=== PATIENT | female | born 1940 | race Two or more races ===

== ENCOUNTER 2016-11-15 06:07 | Inpatient (IN) | payer MEDICARE, OTHER ==
--- NOTE | 2016-11-07 21:30 | HP ---
HISTORY AND PHYSICAL: DATE OF OFFICE VISIT: 11/07/16 DATE OF ADMISSION/SURGERY: 11/15/16 SURGEON: Denis Villeda MD PROCEDURE: Left total knee arthroplasty. CHIEF COMPLAINT: Left knee pain. HISTORY OF PRESENT ILLNESS: Ms. Rae is a 76-year-old female with complaints of left knee pain. She has failed conservative management and elected to proceed with a left total knee arthroplasty with Dr. Villeda. PAST MEDICAL HISTORY: Hypothyroidism, vitamin B12 deficiency, high cholesterol , hypertension, cluster headaches, and aortic incompetence. Patient had a prolonged hospitalization after her right total knee replacement that requires attention from all regarding drug sensitivity; orthopedics, anesthesia, and the medical team. PAST SURGICAL HISTORY: Cataract removal, right total knee arthroplasty, cardiac ablation. CURRENT MEDICATIONS: 1. Aspirin. 2. Levothyroxine. 3. Vitamin B12. 4. Vitamin D3. 5. Sumatriptan. ALLERGIES: DULCOLAX and METAL. FAMILY HISTORY: Hypertension and prostate cancer. SOCIAL HISTORY: She is a 76-year-old female. She lives with her . She does not smoke, use drugs, or alcohol. REVIEW OF SYSTEMS: A complete 14-point review of systems was reviewed with the patient. It is positive for migraine headaches and severe nausea following anesthesia from her right total knee. She denies any history of bleeding disorders, blood clot, pulmonary embolism, hepatitis C, or HIV. PHYSICAL EXAMINATION GENERAL: She is well developed, well nourished, in no acute distress. VITAL SIGNS: She stands 5 feet 6 inches tall, weighs 175 pounds, her blood pressure is 119/78, her heart rate is 80. HEENT: Normocephalic, atraumatic. NECK: Supple. No palpable lymph nodes. Trachea is midline. PULMONARY: The lungs are clear to auscultation bilaterally. No wheezes, rhonchi, or rales. CARDIAC: Regular rate and rhythm. Strong S1, S2. No murmurs, gallops, or rubs. No peripheral edema. ABDOMEN: Soft, nontender, and nondistended. MUSCULOSKELETAL: Left lower extremity; the skin is intact. She has a moderate effusion and tenderness over the medial and lateral joint line. Full range of motion of the left knee. Lower extremity muscle group strengths are intact to 5 /5 and she has intact sensation to pinprick and light touch. 2+ dorsalis pedis pulses. NEUROLOGIC: She is alert and oriented x3. Cranial nerves II through XII are intact. ASSESSMENT AND PLAN: Ms. Rae is a 76-year-old female with complaints of left knee pain secondary to advanced osteoarthritis. She has failed conservative management and elected to proceed with a left total knee arthroplasty with Dr. Villeda. Dr. Villeda discussed the risks and benefits of the surgery at today's visit and all of her questions were answered. Her primary care physician is Dr. Joseph. She will see Dr. Villeda back in 10 to 14 days after the surgery. MARIO SANDHU [id number]/[facility] #: [id number] MTDWard
[~2016-11-15 06:07] MED LIST: Buffered Lidocaine 1% SYR 3ML* 3 ML/SYR SYRINGE INTRADERM ONE; Dexamethasone IV* 4 MG/ML 1 ML (4 MG) IV SLOW PU ONE; Dexamethasone IV* 4 MG/ML 1 ML (4 MG) ONE; Famotidine IV* 10 MG/ML 2 ML (20 mg) IV ONE; Famotidine IV* 10 MG/ML 2 ML (20 mg) ONE; ceFAZolin 2 GM PREMIX (*) 2 GM/50 ML BAG IVPB ONE
[2016-11-15] MEDS ORDERED: Bupivacaine 0.5% SDV PF* 30 ML VIAL ONE ×3 (06:58→07:48)
[2016-11-15] MEDS ORDERED: fentaNYL* 50 MCG/ML 2 ML VIAL (100 MCG VIAL) ONE ×2 (06:59→08:18)
[2016-11-15] MEDS ORDERED: Dexmedetomidine* 200 MCG/2 ML 2 ML VIAL ONE (06:59)
[2016-11-15] MEDS ORDERED: Propofol* 10 MG/ML 20 ML BTL IV PUSH ONE (06:59)
[2016-11-15] MEDS ORDERED: HYDROmorphone INJ* 1 MG/ML CARPUJECT SYRINGE ONE ×4 (06:59→10:19)
[2016-11-15] MEDS ORDERED: Midazolam* 1 MG/ML 5 ML VIAL (5 MG) ONE (07:00)
[2016-11-15] MEDS ORDERED: Bupivacaine 0.5% W/EPI SDV* 30 ML VIAL ONE (07:19)
[2016-11-15] MEDS ORDERED: Morphine PF AMP (0.5MG/ML)* 5 MG/10 ML AMP ONE (08:04)
[2016-11-15] MEDS ORDERED: PROCHLORPERAZINE INJ 5 MG/ML 2 ML VIAL ONE ×2 (08:16→12:36)
[2016-11-15] MEDS ORDERED: Ondansetron INJ* 2 MG/ML VIAL IV PRN ×2 (10:55→10:56)
[2016-11-15] MEDS ORDERED: DiMENhydriNATE IV* 50 MG/ML VIAL IV PUSH PRN ×2 (10:55→10:56)
[2016-11-15] MEDS ORDERED: PROCHLORPERAZINE INJ 5 MG/ML 2 ML VIAL IV PRN ×2 (10:55→10:56)
[2016-11-15] MEDS ORDERED: fentaNYL* 50 MCG/ML 2 ML VIAL (100 MCG VIAL) IV PRN (10:55)
[2016-11-15] MEDS ORDERED: HYDROmorphone INJ* 1 MG/ML CARPUJECT SYRINGE IV PRN (10:55)
[2016-11-15] MEDS ORDERED: Naloxone* 0.4 MG/ML 1 ML VIAL IV PRN (10:56)
[2016-11-15] MEDS ORDERED: diPHENhydraMINE IV* 50 MG/ML 1 ml VIAL (BENADRYL) IV PRN (10:56)
[2016-11-15] MEDS ORDERED: Nalbuphine* 20 MG/ML 1 ML VIAL IV PRN (10:56)
[2016-11-15] MEDS ORDERED: Acetaminophen TAB* 325 MG ONE (11:57)
[2016-11-15] MEDS: Acetaminophen TAB* 325 MG PO PRN (11:58)
--- NOTE | 2016-11-15 12:00 | RAD ---
HISTORY: Postop left knee arthroplasty COMPARISONS: June 20, 2016 VIEWS: 2, frontal and crosstable lateral views of the left knee FINDINGS: BONE DENSITY: Normal. BONES: The patient is status post left knee arthroplasty. There is no hardware failure or osteolysis. JOINTS: The patient is status post left hip capacity ALIGNMENT: There is no dislocation. SOFT TISSUES: Unremarkable. OTHER FINDINGS: There is post surgical change to the soft tissue IMPRESSION: STATUS POST LEFT KNEE ARTHROPLASTY
[2016-11-15] MEDS ORDERED: Ondansetron INJ* 2 MG/ML VIAL ONE (12:36)
[2016-11-15] MEDS: ceFAZolin 1 GM in Dextrose (*) 1 GM/50 ML BAG IVPB SCH ×2 (16:35→22:03)
[2016-11-15] MEDS: oxyCODONE/Acetamin 5/325 MG* TAB PO PRN ×2 (19:17→23:47)
[2016-11-15] MEDS: Docusate CAP* 100 MG PO SCH (22:03)
[2016-11-16] MEDS ORDERED: diPHENhydraMINE IV* 50 MG/ML 1 ml VIAL (BENADRYL) IV PRN
[2016-11-16] MEDS ORDERED: Ondansetron INJ* 2 MG/ML VIAL IV PRN
[2016-11-16] MEDS ORDERED: oxyCODONE TAB* 5 MG TAB PO PRN ×2
[2016-11-16] MEDS ORDERED: Morphine INJ* 2 MG/ML 1 ML CARPUJECT IV PRN
[2016-11-16] MEDS ORDERED: oxyCODONE/Acetamin 5/325 MG* TAB PO PRN ×2
--- NOTE | 2016-11-16 02:14 | OP ---
DATE OF OPERATION: 11/15/16 - ROOM #343 DATE OF : 40 SURGICAL CARE: Left knee. SURGEON: Denis Villeda MD ASSISTANTS: 1. MARIO Davis. 2. Martine Plunkett, distribution field technician. ANESTHESIOLOGIST: Dr. Claudio Littlejohn. ANESTHESIA: Spinal and left saphenous nerve block mid thigh. PRE-OP DIAGNOSIS: Severe arthritis of the left knee with some varus deformity. POST-OP DIAGNOSIS: Severe arthritis of the left knee with some varus deformity. OPERATIVE PROCEDURE: Left total knee replacement. COMPONENTS UTILIZED: The Chris Persona knee was utilized, all components cemented, femur is a size 7, the tibia is a size C, the articular surface is a size 10, and the patella size 32. COMPLICATIONS: There were no complications. DRAINS: Two blood collection drains, left knee, at the end of the case. BLOOD LOSS: 200 mL and replacement crystalloid fluids. OPERATIVE INDICATION: Severe left knee arthritis, no longer responsive to nonoperative care. The patient had a right total knee replacement in 2010. DESCRIPTION OF PROCEDURE: The patient was brought to the operating room and placed on the operating room table in a supine position. Following the administration of the anesthetic, first the femoral saphenous block was done, left thigh, and then the spinal was administered, and then she was returned to the supine position. A Pena catheter was inserted. The left proximal thigh was wrapped with a tourniquet. The left leg was given a preliminary chlorhexidine prep in the region of the knee and then a formal prep from the tourniquet to the tips of the toes and then a careful draping and sealing off for left knee replacement. We did our universal protocol timeout confirming Mirta Butch and a plan for left total knee replacement. We all agreed and we proceeded. The surgical care was done largely without the tourniquet. The tourniquet was utilized just in the cleanup and cementing phase of the case. The surgical care was done with the knee acutely flexed to discourage bleeding. Skin incision went from 1 fingerbreadth proximal to the superior pole of the patella to the medial aspect of the tibial tubercle. Skin and subcutaneous tissues were divided down to the deep fascia. The prepatellar bursa was traversed. The knee was entered medial parapatellar and the knee had clear goldish synovial fluid. The quadriceps tendon was divided at the junction of the rectus femoris and the vastus medialis, staying as close to the vastus medialis as possible. Medial parapatellar and then the tibia, the tissues were divided down to the tibia just medial to the tibial tubercle going up to the joint line and careful hemostasis checked and achieved throughout the case utilizing electrocautery. The patient had complete eburnation of the bone, medial femoral condyle, medial tibial plateau with some scooping out of large osteophytes in medial femoral condyle, medial tibial plateau, in the intercondylar notch, and the patella as well. The anteromedial soft tissues on the tibia were elevated subperiosteally going medially to the deep MCL and into the postero-medial corner of the knee. We removed the synovium around the patella, the infrapatellar fat pad. The intercondylar notch osteophytes were removed. The ACL and PCL were carefully uplifted from their femoral origins and the tibia was then made, so it could be subluxated forward from under the femur. The PCL was carefully excised with careful hemostasis while working posteriorly in the knee. The remains of the anterior horn of the medial meniscus were excised. The distal anterior femur was exposed subperiosteally for referencing and measuring. The proximal tibial cut was made first. Our goal here was to correct varus by taking a little more tibia laterally than medially and ending up with a tibial cut that would have a slight posterior slope and would be perpendicular to the long axis of the tibia. The femoral intramedullary drill was then utilized and the femoral canal was suctioned to discourage embolization. The distal femoral cutting guide was applied with 0 and 6 degrees of valgus were left. These cuts were completed. The femur was then measured for a size 7 and the external rotation holes were made and the 7 cutting block was applied with the external rotation having been attended to. The cuts were then completed for the distal femur anteriorly, chamfering, and posteriorly. We then finished removal of the posterior horn of the lateral meniscus, the posterior horn of the medial meniscus, carefully preserving the MCL and osteophyte posteriorly. At this stage, we had nice ligamentous balance in extension and 90 degrees of flexion with a 10 mm block. The femur was completed with the intercondylar cut out for a size 7. Anchoring holes were made. The tibia was completed for a size C. The knee was articulated and extended with a C tibia, 10 articular surface and a 7 femur, with full knee extension, stable ligaments in extension, and stable ligaments in 90 degrees of flexion. The patella was cut flat and a 32 was chosen. Three drill holes were made and these were undercut. A lateral release was not necessary and the knee had nice alignment and flexion at this stage. The leg was then exsanguinated. The tourniquet was elevated to 275. The knee was cleaned in extension with 2.5 liters of pulsed saline irrigation. The bony surfaces were cleaned in flexion once again with pulsed saline and then all surfaces were dried. The cement was mixed and the components were cemented into position - the patella, followed by the tibia, followed by the femur. Each was impacted. Excess cement was removed. The knee was articulated and extended during the final hardening, and we removed all excess cement from the tibia around the patella, the femur, and the intercondylar notch. Once the cement was hard, the tourniquet was deflated. We checked posteriorly for retained cement fragments and for bleeding points, all were cauterized. We irrigated several times during the closure with saline as well. Then the knee was flexed and extended several times during closure. The flexion was well past 125 degrees and full extension with nice alignment. The quadriceps mechanism closed with interrupted #1 Polysorbs in a [id number] fashion. The same with the medial retinaculum. Distally, we closed with 0-Polysorb interrupted and running. The deep fascia closed with interrupted 0 Polysorb and then 3-0 Polysorb in the superficial subcu and then sydni on the skin. When we let the tourniquet down, the pericapsular soft tissues posteromedially and medially were infiltrated with Marcaine 0.5% with epinephrine, and at the very end of the case, we put another 10 cc into the joint. The dressing was done after washing and drying, covering the sydni with Betadine-soaked release. The drains were dressed with the same and then sterile gauze, sterile Webril, then a cryotherapy cuff, ABD pads, and two loosely applied 6-inch Uday bandages. The dorsalis pedis pulse was 2+ at the end of the case. The alignment was very satisfactory and the patient was returned to the recovery room in stable and satisfactory condition, having tolerated the procedure very well. CC: Dr. Joseph * [id number]/[facility] #: [id number] DALE
[2016-11-16] MEDS: Levothyroxine TAB* 25 MCG TAB PO SCH (05:43)
[2016-11-16] MEDS: ceFAZolin 1 GM in Dextrose (*) 1 GM/50 ML BAG IVPB SCH (05:44)
--- NOTE | 2016-11-16 07:49 | PN ---
Subjective - Subjective Reason for Note: Consultation Note History: She recovered from surgery and anesthesia well. She was able to eat some dinner last night without problem. Sensation and strength have returned to her legs after the spinal anesthetic. She was able to stand and pivot by the bedside. In the early hours of this morning developed light headedness and some intense nausea. She has a mild headache - but not a migraine. She is concerned about her blood pressure. Her pain control is excellent. Active Problems: Active Problems Drug-induced nausea and vomiting (Acute) T50.901A, R11.2 Headache (Acute) R51 History of total knee arthroplasty (Acute) Z96.659 Primary hypothyroidism (Acute) E03.9 Aortic insufficiency (Chronic) Essential hypertension (Chronic) I10 History of arthroplasty of right knee (Chronic) Z96.651 Osteoarthritis of knee (Chronic) M17.9 Vitamin B12 deficiency (dietary) anemia (Chronic) D51.8 Current Medications: Current Medications Acetaminophen (Tylenol Tab*) 650 mg PO Q4H PRN PRN Reason: PAIN OR TEMPERATURE Last Admin: 11/15/16 11:58 Dose: 650 mg Aspirin (Aspirin Tab*) 325 mg PO DAILY [facility] Diphenhydramine HCl (Benadryl Iv*) 25 mg IV Q6H PRN PRN Reason: itching or sleep Docusate Sodium (Colace Cap*) 100 mg PO BID [facility] Last Admin: 11/15/16 22:03 Dose: 100 mg Lactated Ringer's (Lactated Ringers 1000 Ml Bag*) 1,000 mls @ 100 mls/hr IV PER RATE [facility] Last Admin: 11/15/16 14:42 Dose: 100 mls/hr Lactulose (Lactulose*) 30 ml PO Q6H PRN PRN Reason: constipation Levothyroxine Sodium (Synthroid Tab*) 25 mcg PO 0600 [facility] Last Admin: 11/16/16 05:43 Dose: 25 mcg Morphine Sulfate (Morphine Inj (Syringe)*) 1 mg IV Q2H PRN PRN Reason: PAIN - SEVERE Ondansetron HCl (Zofran Inj*) 4 mg IV Q6H PRN PRN Reason: nausea Last Admin: 11/16/16 06:13 Dose: 4 mg Oxycodone HCl (Roxycodone Tab*) 7.5 mg PO Q4H PRN PRN Reason: PAIN - SEVERE Oxycodone HCl (Roxycodone Tab*) 5 mg PO Q4H PRN PRN Reason: PAIN - MODERATE TO SEVERE Oxycodone/Acetaminophen (Percocet 5/325 Tab*) 1 tab PO Q4H PRN PRN Reason: PAIN Oxycodone/Acetaminophen (Percocet 5/325 Tab*) 2 tab PO Q4H PRN PRN Reason: PAIN - MODERATE - Review of Systems Pulmonary: Negative: Cough, Sputum, Respiratory Distress, Shortness of Breath Cardiology: Negative: Chest Pain, Shortness of Breath, Palpitations Gastroenterology: Positive: Nausea, Anorexia Negative: Abdominal Pain, Vomiting Neurology: Positive: Headache, Migraines Negative: Change in Vision, Numbness\Paresthesiae, Unexplained Weakness Home Medications: Home Medications Medication Instructions Recorded Confirmed Type Cholecalciferol TAB* [Vitamin D 1,000 unit PO AC 04/09/15 11/15/16 History TAB*] Cyanocobalamin TAB* [Vitamin B12 1,000 mcg PO .3X A WEEK 04/09/15 11/15/16 History TAB*] Aspirin [Aspirin Adult Low Dose 81 81 mg PO DAILY 11/07/16 11/15/16 History MG] Levothyroxine TAB* [Synthroid TAB*] 25 mcg PO 0800 11/07/16 11/15/16 History Zolmitriptan 2.5 mg PO SEE INSTRUCTIONS MDD 4 11/07/16 11/15/16 History tabs a day Allergies: Allergies Allergy/AdvReac Type Severity Reaction Status Date / Time Bisacodyl [From Dulcolax] Allergy Severe very drowsy Verified 11/15/16 06:28 Objective - Vital Signs Vital Signs: Vital Signs 11/15/16 11/15/16 11/15/16 10:47 10:50 10:55 Temperature 98.2 F Pulse Rate 60 55 55 Respiratory 12 14 12 Rate Blood Pressure 120/62 110/62 112/64 (mmHg) O2 Sat by Pulse 96 98 98 Oximetry 11/15/16 11/15/16 11/15/16 11:00 11:15 11:30 Temperature Pulse Rate 54 57 51 Respiratory 14 14 14 Rate Blood Pressure 120/61 123/67 129/67 (mmHg) O2 Sat by Pulse 98 99 100 Oximetry 11/15/16 11/15/16 11/15/16 11:45 12:00 12:15 Temperature Pulse Rate 55 53 50 Respiratory 14 16 16 Rate Blood Pressure 127/69 135/72 144/72 (mmHg) O2 Sat by Pulse 99 98 98 Oximetry 11/15/16 11/15/16 11/15/16 12:30 12:45 13:00 Temperature 97.3 F Pulse Rate 52 51 47 Respiratory 16 14 14 Rate Blood Pressure 143/73 120/68 124/64 (mmHg) O2 Sat by Pulse 98 97 98 Oximetry 11/15/16 11/15/16 11/15/16 13:15 13:30 14:10 Temperature 96.4 F Pulse Rate 48 47 52 Respiratory 16 14 16 Rate Blood Pressure 119/58 128/63 134/62 (mmHg) O2 Sat by Pulse 97 98 100 Oximetry 11/15/16 11/15/16 11/15/16 14:15 14:52 15:56 Temperature 96.4 F 97.3 F 97.5 F Pulse Rate 52 55 57 Respiratory 16 16 14 Rate Blood Pressure 134/62 132/64 139/62 (mmHg) O2 Sat by Pulse 100 100 100 Oximetry 11/15/16 11/15/16 11/15/16 18:00 18:07 19:17 Temperature 97.5 F Pulse Rate 63 Respiratory 18 18 Rate Blood Pressure 160/58 (mmHg) O2 Sat by Pulse 100 Oximetry 11/15/16 11/15/16 11/15/16 19:29 20:00 21:17 Temperature Pulse Rate 66 Respiratory 18 14 18 Rate Blood Pressure 129/63 (mmHg) O2 Sat by Pulse 100 Oximetry 11/15/16 11/15/16 11/16/16 23:32 23:47 00:00 Temperature 97.1 F Pulse Rate 61 Respiratory 18 18 Rate Blood Pressure 135/61 (mmHg) O2 Sat by Pulse 100 100 Oximetry 11/16/16 11/16/16 01:47 03:31 Temperature 97.2 F Pulse Rate 62 Respiratory 18 18 Rate Blood Pressure 120/56 (mmHg) O2 Sat by Pulse 100 Oximetry - Intake and Output Intake and Output: Intake & Output 11/13/16 11/14/16 11/15/16 11/16/16 11:59 11:59 11:59 11:59 Intake Total 2350 2525 Output Total 1200 2550 Balance 1150 -25 Weight 171 lb 12.8 oz Intake: IV Fluids 2350 600 LR 2300 600 NS 50ML, Cefazolin 2G 50 IVPB 55 ABX - CEFAZOLIN 55 Oral 1520 Autotransfusion 350 Output: Hemovac Amount #1 250 Pena 1000 1950 Estimated Blood Loss 200 Autotransfusion Amount 350 ADLs: Meal Record Start: 11/15/16 14: 10 Freq: Status: Active Created 11/15/16 14:10 [id number] (Rec: 11/15/16 14:10 [id number]) Intake and Output Start: 11/15/16 10: 54 Freq: 06,14,2200 Status: Active Created 11/15/16 11:13 [id number] (Rec: 11/15/16 11:13 [id number]) Intake and Output Start: 11/15/16 14: 10 Freq: DAILY@0600,1400,2200 Status: Active Created 11/15/16 14:10 [id number] (Rec: 11/15/16 14:10 [id number]) Document 11/15/16 22:34 [id number] (Rec: 11/15/16 22:35 [id number]) Document 11/15/16 23:00 [id number] (Rec: 11/16/16 05:17 [id number]) Document 11/16/16 05:17 [id number] (Rec: 11/16/16 05:17 [id number]) - Physical Exam General Physical Exam Comment: Warm and well perfused. She is hemodynamical stable. She is nauseated. She is wide awake and conversational General: No Cyanosis, No Anemia, No Jaundice, No Clubbing Eye Exam: bilateral: EOMI Skin: Normal: Rash Lungs and Chest: Yes: Chest Expansion Full, Chest Expansion Symetrica, Percussion Note Resonant, Vessicular Breath Sounds. No: Crackles, Wheezes Heart Rate and Rhythm: Regular Additional Cardiovascular: Yes: Normal Heart Sounds. No: Heart Murmur Abdominal Exam: Yes: Soft. No: Distention, Abdominal Mass, Hepatomegaly, Abdominal Tenderness, Guarding, Bowel Sounds Present - diminished bowel sounds - Extremities Cranial Nerves II-XII Intact: Yes Limbs: Normal Power - left limb not tested - Neuro Orientation: A/O x3 Speech: Normal Assessment - Problem List Assessment: Patient Problems Drug-induced nausea and vomiting (Acute) Headache (Acute) History of total knee arthroplasty (Acute) Primary hypothyroidism (Acute) Aortic insufficiency (Chronic) Essential hypertension (Chronic) History of arthroplasty of right knee (Chronic) Osteoarthritis of knee (Chronic) Vitamin B12 deficiency (dietary) anemia (Chronic) Plan: Drug-induced nausea and vomiting (Acute) She has a history of intense nausea and vomiting from opioids after her right total knee arthroplasty. She was doing well until early this morning and intense nausea started. Dr. Villeda and I have discussed the use of mechanical repair worker analgesia because of her tendency to intense nausea. I will add a different antiemetic. I will stop oxycodone and morphine sulfate. I will give her a trial of tramadol orally, I will change her anti-emetic. She received hydromorphone yesterday during surgery without nausea - she can use this for breakthrough pain IV. Headache (Acute) Mild headache - not a migraine History of total knee arthroplasty (Acute) She has good pain control Primary hypothyroidism (Acute) restart her thyroid hormone Aortic insufficiency (Chronic) secondary diagnosis Essential hypertension (Chronic) normal BP this morning History of arthroplasty of right knee (Chronic) Osteoarthritis of knee (Chronic) historical Vitamin B12 deficiency (dietary) anemia (Chronic) secondary diagnosis I explained the above to the patient
[2016-11-16] MEDS: Acetaminophen TAB* 325 MG PO PRN ×3 (08:00→18:04)
[2016-11-16] MEDS ORDERED: traMADol TAB* 50 MG PO PRN (08:01)
[2016-11-16] MEDS ORDERED: HYDROmorphone INJ* 1 MG/ML CARPUJECT SYRINGE IV SLOW PU PRN (08:02)
[2016-11-16] MEDS: Metoclopramide IV* 5 MG/ML 2 ML VIAL IV PRN (09:02)
[2016-11-16] MEDS: Docusate CAP* 100 MG PO SCH ×2 (09:59→21:39)
[2016-11-16] MEDS: Aspirin TAB* 325 MG PO SCH (09:59)
[2016-11-16 10:48] LABS: Hematocrit 33 % (35-47); Hemoglobin 10.8 g/dl (12.0-16.0)
[2016-11-16 10:59] LABS: BUN/Creatinine Ratio 12.6 (8-20); Calcium 8.7 mg/dL (8.6-10.3); EGFR African American 81.4 (>60); EGFR Non-African American 63.3 (>60); Potassium 3.5 mmol/L (3.5-5.0)
[2016-11-17] MEDS: Acetaminophen TAB* 325 MG PO PRN ×4 (00:20→21:52)
[2016-11-17] MEDS: Metoclopramide IV* 5 MG/ML 2 ML VIAL IV PRN (05:23)
[2016-11-17] MEDS: Levothyroxine TAB* 25 MCG TAB PO SCH (05:24)
[2016-11-17] MEDS ORDERED: Ketorolac INJ* 15 MG/ML 1 ML VIAL IV PUSH PRN (06:28)
--- NOTE | 2016-11-17 07:23 | PN ---
Subjective - Subjective Reason for Note: Consultation Note History: Internal medicine: The nausea she experienced yesterday morning went away. During the day she felt well and was able to eat and drink. She worked with physical therapy. At 7 pm last night she developed severe pain in her left knee. It stopped her sleeping. She was given hydromorphone 0.5 mg IV as this didn't cause nausea during her surgery. This allowed her to sleep. She continues to have pain this morning. She is concerned at some discharge from the left wound. I have tried administering some toradol - this had no beneficial effect. This morning she has no nausea, however, she is aware that she is dizzy and is concerned about her stability if she were to stand. She has had no chest pain, dyspnea or palpitations. She has no cough or sputum. Active Problems: Active Problems Drug-induced nausea and vomiting (Acute) T50.901A, R11.2 Headache (Acute) R51 History of total knee arthroplasty (Acute) Z96.659 Primary hypothyroidism (Acute) E03.9 Aortic insufficiency (Chronic) Essential hypertension (Chronic) I10 History of arthroplasty of right knee (Chronic) Z96.651 Osteoarthritis of knee (Chronic) M17.9 Vitamin B12 deficiency (dietary) anemia (Chronic) D51.8 Current Medications: Current Medications Acetaminophen (Tylenol Tab*) 650 mg PO Q4H PRN PRN Reason: PAIN OR TEMPERATURE Last Admin: 11/17/16 00:20 Dose: 650 mg Aspirin (Aspirin Tab*) 325 mg PO DAILY [facility] Last Admin: 11/16/16 09:59 Dose: 325 mg Diphenhydramine HCl (Benadryl Iv*) 25 mg IV Q6H PRN PRN Reason: itching or sleep Docusate Sodium (Colace Cap*) 100 mg PO BID [facility] Last Admin: 11/16/16 21:39 Dose: 100 mg Hydromorphone HCl (Dilaudid Iv*) 0.5 mg IV SLOW PU Q4H PRN PRN Reason: PAIN Last Admin: 11/17/16 05:23 Dose: 0.5 mg Lactated Ringer's (Lactated Ringers 1000 Ml Bag*) 1,000 mls @ 100 mls/hr IV PER RATE [facility] Last Admin: 11/16/16 18:33 Dose: 100 mls/hr Ketorolac Tromethamine (Toradol Inj*) 15 mg IV PUSH Q6H PRN PRN Reason: PAIN Lactulose (Lactulose*) 30 ml PO Q6H PRN PRN Reason: constipation Levothyroxine Sodium (Synthroid Tab*) 25 mcg PO 0600 SINDI Last Admin: 11/17/16 05:24 Dose: 25 mcg Metoclopramide HCl (Reglan Iv*) 10 mg IV Q6H PRN PRN Reason: NAUSEA/VOMITING Last Admin: 11/17/16 05:23 Dose: 10 mg Tramadol HCl (Ultram*) 50 mg PO Q4H PRN PRN Reason: PAIN Last Admin: 11/16/16 21:39 Dose: 50 mg Home Medications: Home Medications Medication Instructions Recorded Confirmed Type Cholecalciferol TAB* [Vitamin D 1,000 unit PO AC 04/09/15 11/15/16 History TAB*] Cyanocobalamin TAB* [Vitamin B12 1,000 mcg PO .3X A WEEK 04/09/15 11/15/16 History TAB*] Aspirin [Aspirin Adult Low Dose 81 81 mg PO DAILY 11/07/16 11/15/16 History MG] Levothyroxine TAB* [Synthroid TAB*] 25 mcg PO 0800 11/07/16 11/15/16 History Zolmitriptan 2.5 mg PO SEE INSTRUCTIONS MDD 4 11/07/16 11/15/16 History tabs a day Allergies: Allergies Allergy/AdvReac Type Severity Reaction Status Date / Time Bisacodyl [From Dulcolax] Allergy Severe very drowsy Verified 11/15/16 06:28 Objective - Vital Signs Vital Signs: Vital Signs 11/16/16 11/16/16 11/16/16 08:00 08:04 12:14 Temperature 97.4 F 97.3 F Pulse Rate 58 71 Respiratory 16 18 Rate Blood Pressure 129/92 134/80 121/50 (mmHg) O2 Sat by Pulse 100 100 Oximetry 11/16/16 11/16/16 11/16/16 16:37 19:31 19:41 Temperature 98.6 F 97.9 F Pulse Rate 66 77 Respiratory 16 15 16 Rate Blood Pressure 136/51 129/69 (mmHg) O2 Sat by Pulse 100 100 Oximetry 11/16/16 11/16/16 11/16/16 21:39 23:39 23:55 Temperature 97.8 F Pulse Rate 76 Respiratory 16 16 16 Rate Blood Pressure 145/56 (mmHg) O2 Sat by Pulse 99 Oximetry 11/17/16 11/17/16 11/17/16 03:58 05:23 06:20 Temperature 98.1 F Pulse Rate 69 Respiratory 16 20 17 Rate Blood Pressure 139/66 (mmHg) O2 Sat by Pulse 100 Oximetry - Intake and Output Intake and Output: Intake & Output 11/14/16 11/15/16 11/16/16 11/17/16 11:59 11:59 11:59 11:59 Intake Total 2350 2565 4956 Output Total 1200 2550 3600 Balance 1150 15 1356 Weight 171 lb 12.8 oz Intake: IV Fluids 2350 600 1901 LR 2300 600 1901 NS 50ML, Cefazolin 2G 50 IVPB 55 55 ABX - CEFAZOLIN 55 LR 55 Oral 1560 3000 Autotransfusion 350 Output: Hemovac Amount #1 250 Urine 3350 Pena 1000 1950 250 Estimated Blood Loss 200 Autotransfusion Amount 350 Other: Estimated Void Medium ADLs: Meal Record Start: 11/15/16 14: 10 Freq: Status: Active Created 11/15/16 14:10 [id number] (Rec: 11/15/16 14:10 [id number] SSU-M02) Document 11/16/16 11:14 [id number] (Rec: 11/16/16 11:14 [id number] SSU-C04) Document 11/16/16 14:50 [id number] (Rec: 11/16/16 14:51 [id number] SSU-C04) Document 11/16/16 21:20 [id number] (Rec: 11/16/16 21:38 [id number] SSU-C19) Intake and Output Start: 11/15/16 10: 54 Freq: 06,14,2200 Status: Active Created 11/15/16 11:13 [id number] (Rec: 11/15/16 11:13 WES [id number]) Intake and Output Start: 11/15/16 14: 10 Freq: DAILY@0600,1400,2200 Status: Active Created 11/15/16 14:10 [id number] (Rec: 11/15/16 14:10 [id number] SSU-M02) Document 11/15/16 22:34 [id number] (Rec: 11/15/16 22:35 [id number] SSU-C19) Document 11/15/16 23:00 [id number] (Rec: 11/16/16 05:17 [id number] SSU-C19) Document 11/16/16 05:17 [id number] (Rec: 11/16/16 05:17 [id number] SSU-C19) Document 11/16/16 12:46 [id number] (Rec: 11/16/16 12:46 [id number] SSU-M02) Document 11/16/16 14:22 [id number] (Rec: 11/16/16 14:22 [id number] SSU-C19) Document 11/16/16 18:03 [id number] (Rec: 11/16/16 18:04 [id number] SSU-M02) Document 11/16/16 22:23 [id number] (Rec: 11/16/16 22:26 [id number] SSU-C19) Document 11/17/16 00:14 [id number] (Rec: 11/17/16 00:14 [id number] SSU-C02) Document 11/17/16 04:46 [id number] (Rec: 11/17/16 04:46 [id number] SSU-C02) Document 11/17/16 05:01 [id number] (Rec: 11/17/16 05:02 [id number] SSU-C02) Document 11/17/16 06:21 [id number] (Rec: 11/17/16 06:21 [id number]) - Physical Exam General Physical Exam Comment: Alert, oriented and fully conversant. She is hemodynamically stable and in no acute distress General: No Cyanosis, No Jaundice, No Lymphadenopathy, No Clubbing, No Other Lungs and Chest: Yes: Chest Expansion Full, Chest Expansion Symetrica, Percussion Note Resonant, Vessicular Breath Sounds. No: Crackles, Wheezes Heart Rate and Rhythm: Regular Additional Cardiovascular: Yes: Normal Heart Sounds. No: Heart Murmur, Pedal Edema Abdominal Exam: Yes: Soft, Bowel Sounds Present. No: Distention, Abdominal Mass , Hepatomegaly, Abdominal Tenderness - Neuro Orientation: A/O x3 Speech: Normal Results - Results Lab Results: Laboratory Results - last 24 hr 11/16/16 11/16/16 10:03 10:03 Hgb 10.8 L Hct 33 L Sodium 137 Potassium 3.5 Chloride 105 Carbon Dioxide 26 Anion Gap 6 BUN 11 Creatinine 0.87 Est GFR ( Amer) 81.4 Est GFR (Non-Af Amer) 63.3 BUN/Creatinine Ratio 12.6 Glucose 129 H Calcium 8.7 Assessment - Problem List Assessment: Patient Problems Drug-induced nausea and vomiting (Acute) Headache (Acute) History of total knee arthroplasty (Acute) Primary hypothyroidism (Acute) Aortic insufficiency (Chronic) Essential hypertension (Chronic) History of arthroplasty of right knee (Chronic) Osteoarthritis of knee (Chronic) Vitamin B12 deficiency (dietary) anemia (Chronic) Plan: Drug-induced nausea and vomiting (Acute) She responded well to metoclopramide instead of ondansetron. She received a dose of hydromorphone 0.5 mg and this worked for the pain, and did not cause nausea - it has made her dizzy. I explained to the patient that this is a strong opioid and indeed would have some adverse effects as well as beneficial. As long as she is not nauseated, this may be a good trade off. She has yet to have a bowel movement - she should have a diet that helps with the opioid induced constipation Headache (Acute) The mildest symptoms this morning History of total knee arthroplasty (Acute) Per Dr. Villeda Primary hypothyroidism (Acute) continue current Rx Aortic insufficiency (Chronic) secondary diagnosis Essential hypertension (Chronic) BP on target History of arthroplasty of right knee (Chronic) Osteoarthritis of knee (Chronic) resolved Vitamin B12 deficiency (dietary) anemia (Chronic) secondary diagnosis She has now developed left knee pain, presumably when the spinal analgesia wore off. Dr. Villeda will ensure there is no surgical explanation for the increased knee pain. Tramadol and toradol are inadequate for analgesia. Hydromorphone is effective, but gives her dysphoria/dizziness. Here is my pain plan: * Mild pain - Acetaminophen +/- toradol (pain scale 0 - 4) * Moderate pain - hydromorphone 0.5 mg po (pain scale 5 - 7) * Severe pain - hydromorphone 0.5 mg iv (pain scale 8 - 10)
[2016-11-17] MEDS ORDERED: HYDROmorphone INJ* 1 MG/ML CARPUJECT SYRINGE IV SLOW PU PRN (07:26)
[2016-11-17] MEDS ORDERED: Psyllium PAK PO PRN (07:27)
[2016-11-17 07:49] LABS: Hematocrit 31 % (35-47); Hemoglobin 10.2 g/dl (12.0-16.0); Mean Corpuscular HGB Conc 33 g/dl (31-36); Mean Corpuscular Hemoglobin 29 pg (27-31); Mean Corpuscular Volume 88 fL (80-97); Red Blood Count 3.56 10^6/ul (4.0-5.4); Red Cell Distribution Width 13 % (10.5-15); White Blood Count 11.1 10^3/ul (3.5-10.8)
[2016-11-17 07:51] LABS: Add Diff/Slide Review? Slide Review Added; Comments Flag Yes
[2016-11-17 08:03] LABS: BUN/Creatinine Ratio 13.9 (8-20); Calcium 8.3 mg/dL (8.6-10.3); EGFR African American 101.3 (>60); EGFR Non-African American 78.8 (>60); Potassium 3.5 mmol/L (3.5-5.0)
[2016-11-17] MEDS: HYDROmorphone TAB* 2 MG PO PRN ×3 (08:32→21:09)
[2016-11-17] MEDS: Aspirin TAB* 325 MG PO SCH (08:32)
[2016-11-17] MEDS: Docusate CAP* 100 MG PO SCH ×2 (08:32→21:09)
[2016-11-17 10:28] LABS: Comments Flag Yes; Mean Platelet Volume 9 um3 (7.4-10.4)
[2016-11-18] MEDS: HYDROmorphone TAB* 2 MG PO PRN ×4 (03:08→19:58)
[2016-11-18] MEDS: Levothyroxine TAB* 25 MCG TAB PO SCH (05:48)
[2016-11-18 06:37] LABS: Hematocrit 29 % (35-47); Hemoglobin 9.7 g/dl (12.0-16.0)
--- NOTE | 2016-11-18 08:08 | RAD ---
HISTORY: Increased pain, left knee arthroplasty COMPARISONS: November 15, 2016 VIEWS: 2, Frontal and lateral views of the left knee FINDINGS: BONE DENSITY: Normal. BONES: The patient is status post left knee arthroplasty. There is no hardware failure or osteolysis. JOINTS: The patient is status post left knee arthroplasty ALIGNMENT: There is no dislocation. SOFT TISSUES: There is post surgical change to the soft tissues OTHER FINDINGS: None. IMPRESSION: STATUS POST LEFT KNEE ARTHROPLASTY
[2016-11-18] MEDS: Docusate CAP* 100 MG PO SCH ×2 (08:25→19:58)
[2016-11-18] MEDS: Acetaminophen TAB* 325 MG PO PRN (08:25)
[2016-11-18] MEDS: traMADol TAB* 50 MG PO PRN ×3 (08:25→19:57)
[2016-11-18] MEDS: Aspirin TAB* 325 MG PO SCH (08:25)
--- NOTE | 2016-11-18 08:32 | PN ---
Progress Note - Progress Note SOAP: Subjective: [76 y/o female s/p L TKA 11/15/[address] Villeda. Patient believes twisted knee last night while sitting in bed, X-ray negative. ] Objective: []GEneral= Resting in bed comfortably, physical exam performed by DR. Villeda, please see written note. Vital Signs Temp 97.9 F 11/18/16 07:41 Pulse 79 11/18/16 07:41 Resp 18 11/18/16 08:25 BP 147/53 11/18/16 07:41 Pulse Ox 100 11/18/16 07:41 Intake & Output 11/17/16 11/18/16 11/18/16 18:59 06:59 18:59 Intake Total 770 2180 Output Total 1000 3600 Balance -230 -1420 Intake: IV Fluids 0 LR 0 Oral 770 2180 Output: Urine 1000 3600 Laboratory Results - last 24 hr 11/17/16 11/17/16 11/18/16 07:16 09:31 06:04 Hgb 9.7 L Hct 29 L Plt Count 91 L D MPV Not Reportable 9 Assessment: [76 y/o female s/p L TKA 11/15/[address] Villeda] Plan: [- DVT prophylaxis with ASA - PT/OT - Possible DC today ] Active Medications Generic Name Dose Route Start Last Admin Trade Name Freq PRN Reason Stop Dose Admin Acetaminophen 650 mg 11/15/16 10:54 11/18/16 08:25 Tylenol Tab* PO 650 mg Q4H PRN Administration PAIN OR TEMPERATURE Aspirin 325 mg 11/16/16 09:00 11/18/16 08:25 Aspirin Tab* PO 325 mg DAILY SINDI Administration Diphenhydramine HCl 25 mg 11/16/16 00:00 Benadryl Iv* IV Q6H PRN itching or sleep Docusate Sodium 100 mg 11/15/16 21:00 11/18/16 08:25 Colace Cap* PO 100 mg BID SINDI Administration Hydromorphone HCl 0.5 mg 11/17/16 07:25 11/18/16 07:10 Dilaudid Tab* PO 0.5 mg Q4H PRN Administration PAIN Hydromorphone HCl 0.5 mg 11/17/16 07:26 Dilaudid Iv* IV SLOW PU Q4H PRN PAIN Ketorolac Tromethamine 15 mg 11/17/16 06:28 11/18/16 08:29 Toradol Inj* IV PUSH 15 mg Q6H PRN Administration PAIN Lactulose 30 ml 11/15/16 10:54 Lactulose* PO Q6H PRN constipation Levothyroxine Sodium 25 mcg 11/16/16 06:00 11/18/16 05:48 Synthroid Tab* PO 25 mcg 0600 SINDI Administration Metoclopramide HCl 10 mg 11/16/16 08:01 11/17/16 05:23 Reglan Iv* IV 10 mg Q6H PRN Administration NAUSEA/VOMITING Psyllium Hydrophilic Mucilloid 1 pkt 11/17/16 07:27 Metamucil Jairo* PO DAILY PRN DIARRHEA Tramadol HCl 50 mg 11/17/16 07:25 11/18/16 08:25 Ultram* PO 50 mg Q4H PRN Administration PAIN
[2016-11-19] MEDS: traMADol TAB* 50 MG PO PRN ×3 (00:27→14:27)
[2016-11-19] MEDS: HYDROmorphone TAB* 2 MG PO PRN ×3 (00:27→14:28)
[2016-11-19] MEDS: Levothyroxine TAB* 25 MCG TAB PO SCH (04:22)
[2016-11-19 08:01] LABS: Hematocrit 30 % (35-47); Hemoglobin 10.1 g/dl (12.0-16.0)
[2016-11-19] MEDS ORDERED: Ondansetron TAB* 4 MG ONE (08:18)
[2016-11-19] MEDS: Ondansetron TAB* 4 MG PO PRN ×2 (08:20→14:27)
[2016-11-19] MEDS: Docusate CAP* 100 MG PO SCH (08:21)
[2016-11-19] MEDS: Aspirin TAB* 325 MG PO SCH (08:21)
[2016-11-19 13:30] VITALS: BP 127/56
--- NOTE | 2016-11-19 13:40 | PN ---
Progress Note - Progress Note SOAP: Subjective: [Pt reports doing well. Pain managed with meds. Has been ambulating with minimal discomfort. Feels ready to go home.] Objective: [A and O x 3. NAD L knee dressing changed. Incision benign. No erythema or drainage. Mold swelling and moderated ecchymosis at knee and distally into calf. Calf soft. NT. DP pulse palpable. Gross motor and sensation intact. Vital Signs: Temp Pulse Resp BP Pulse Ox 97.9 F 66 18 127/56 100 11/19/16 11:54 11/19/16 11:54 11/19/16 11:54 11/19/16 11:54 11/19/16 11:54 Laboratory Results - last 24 hr 11/19/16 07:54 Hgb 10.1 L Hct 30 L ] Assessment: [s/p L TKA POD #4, with subsequent twist of knee in bed on 11/14/16] Plan: [Hydromorphone for pain ASA for DVT prophylaxis PT/OT D/C patient home with VNS F/U with Dr. Villeda on 12/14/16 in office]
--- NOTE | 2016-11-20 22:55 | DS ---
DISCHARGE SUMMARY: DATE OF ADMISSION: 11/15/16 DATE OF DISCHARGE: 11/19/16 AGE: 76. PROVIDER: Denis Villeda MD ADMITTING PHYSICIAN: Dr. Villeda. ADMITTING DIAGNOSES: 1. Right knee osteoarthritis. 2. Hypothyroidism. 3. Vitamin B12 deficiency. 4. Hypercholesterolemia. 5. Hypertension. 6. Cluster headaches. 7. Aortic incompetence. DISCHARGE DIAGNOSES: 1. Status post left total knee arthroplasty. 2. Hypothyroidism. 3. Vitamin B12 deficiency. 4. Hypercholesterolemia. 5. Hypertension. 6. Cluster headaches. 7. Aortic incompetence. PROCEDURE: Left total knee arthroplasty. CONSULTANTS: 1. Physical Therapy. 2. Occupational Therapy. 3. Medicine. BRIEF HISTORY: Ms. Kirby is a 76-year-old female with severe degenerative osteoarthritis of her left knee. She failed conservative treatment measures and elected to undergo a left total knee arthroplasty on 11/15/[address] Villeda. HOSPITAL COURSE: Ms. Kirby was admitted to [facility] on 11/15/16. She underwent an uncomplicated left total knee arthroplasty. Postoperatively, she recovered on the short stay surgical unit. Her Pena catheter was removed on postoperative day 1 and she was able to urinate on her own. Postoperative day 2, the patient had an increase in left knee pain and believes she had twisted her knee in bed. Subsequent exam was benign and x-rays were negative. The patient advanced to a regular diet without difficulty. Her pain was well controlled with initially ibuprofen and then Dilaudid was added to her pain regimen, which worked well to manage her discomfort. The patient was started on home medications. Her vital signs and labs remained stable. She was able to bear weight as tolerated on the left lower extremity. She advanced appropriately with physical therapy and occupational therapy. Her DVT prophylaxis was 325 mg of aspirin daily. By postoperative day #4, she was orthopedically and medically stable for discharge home with services. PHYSICAL EXAMINATION: General: On examination, the patient was noted to be calm and cooperative, in no acute distress. She is alert and oriented x3. Vital signs on day of discharge: Temperature 97.5 Fahrenheit, pulse rate 72, respirations 18, O2 saturation 97% on room air, blood pressure 125/53. Extremities: Examination of the left lower extremity demonstrates a dressing on the left knee, which is clean, dry, and intact. There is swelling and ecchymosis distal to the knee cap from the cast down into the ankle; however, the cast was compressible and nontender. Distally, she had +2 palpable dorsalis pedis pulse: 5/5 ankle dorsiflexion, plantar flexion, and strength. Sensation is intact to light touch, left lower extremity. LABORATORY DATA ON THE DAY OF DISCHARGE: Hemoglobin 10.1, hematocrit 30. RADIOGRAPHS: Postoperative radiographs including day of surgery and postoperative day 2 of the left knee demonstrate a left total knee arthroplasty with satisfactory prosthesis placement and no acute bony abnormalities. DISCHARGE MEDICATIONS: 1. Aspirin 325 mg daily. 2. Levothyroxine. 3. Vitamin B12. 4. Vitamin D3. 5. Sumatriptan. 6. Dilaudid 2 mg one half to one tab q.4 to 6 hours p.r.n. pain. CONDITION ON DISCHARGE: Stable. DISCHARGE INSTRUCTIONS: Ms. Kirby is a 76-year-old female, postoperative day #4 , status post left total knee arthroplasty, which was uncomplicated. She is orthopedically and medically stable. She will be discharged home with services. She had stable vital signs and labs. She has restarted her medications. She will take aspirin 325 mg daily for DVT prophylaxis. She will need Dilaudid for pain control. She will remain weightbearing as tolerated on the left lower extremity and have home physical therapy twice a day. She will take Colace up to 3 times a day for constipation. She will follow up in the office with Dr. Villeda in 10 to 14 days for incision checks and staple removal. She was instructed to call Dr. Villeda and go immediately to the emergency room if she develops any new fevers, chills, or incision pain, redness, or drainage. She was instructed to go immediately to the ER should she develop chest pain or shortness of breath. MARIO DAVIDSON [id number]/[facility] #: [id number] [facility]US[facility]
== END 2016-11-19 15:19 | disposition home health service (06) | DRG 470 ==
LOC: AA 06:07 → SSU 14:09
PROVIDERS: ADMIT Orthopaedic Surgery; ATTEND Orthopaedic Surgery
PROC: 0SRD0J9 Replacement of Left Knee Joint with Synthetic Substitute, Cemented, Open Approach (ICD-10-PCS; principal; 2016-11-15 07:30)
DX: M17.12 Unilateral primary osteoarthritis, left knee (principal); I35.1 Nonrheumatic aortic (valve) insufficiency; D62 Acute posthemorrhagic anemia; E03.9 Hypothyroidism, unspecified; E53.8 Deficiency of other specified B group vitamins; E78.00 Pure hypercholesterolemia, unspecified; I10 Essential (primary) hypertension; G44.009 Cluster headache syndrome, unspecified, not intractable; Z79.82 Long term (current) use of aspirin; Z96.651 Presence of right artificial knee joint; Z88.8 Allergy status to other drugs, medicaments and biological substances; Z91.048 Other nonmedicinal substance allergy status; Z98.49 Cataract extraction status, unspecified eye; Z82.49 Family history of ischemic heart disease and other diseases of the circulatory system; Z80.42 Family history of malignant neoplasm of prostate; R11.0 Nausea
CPT/HCPCS: 36415; 62321; 80048; 85014; 85018; 85025; 85049; 88305; 88311; A9270-GY; C1776; J0690; J0780; J1100; J1170; J1885; J2250; J2405; J2704; J2765; J3010

== ENCOUNTER 2019-01-24 12:59 | Emergency (ER) | payer MEDICARE, OTHER ==
--- NOTE | 2019-01-24 13:34 | ED ---
Headache - HPI Summary HPI Summary: 78 year [place] F [place] [facility] [place] by with a chief complaint of intermittent episodes of sudden onset, throbbing, right-sided headaches that radiate to her right eye and nose since one month ago, worse since last night. Patient does not currently have a headache in ED. Symptoms aggravated by nothing. Symptoms alleviated by nothing. Patient reports neck pain, insomnia. Patient denies blurred vision. Patient states that headaches are the worst at night. Patient has hx migraine headaches. Patient additionally complains of right wrist pain and right ankle pain. Patient has hx HTN. - History Of Current Complaint Chief Complaint: EDHeadache Stated Complaint: HEADACHE PER PT Time Seen by Provider: 01/24/19 13:27 Hx Obtained From: Patient Onset/Duration: Started weeks ago - 4, Still Present, Worse Since - last night Timing: Intermittent, Lasting: Character: Throbbing Location of Headache: Other: - right-sided Aggravating Factor: Nothing Allevating Factors: Nothing Associated Signs And Symptoms: Negative - denies blurred vision, Other (Noted In Comments) - neck pain, insomnia, right wrist pain and right ankle pain - Allergies/Home Medications Allergies/Adverse Reactions: Allergies Allergy/AdvReac Type Severity Reaction Status Date / Time bisacodyl AdvReac See Comment Verified 01/24/19 13:05 [From Dulcolax (bisacodyl)] Home Medications: Home Medications Levothyroxine TAB* [Synthroid TAB*] 50 mcg PO DAILY 01/24/19 [History Confirmed 01/24/19] dilTIAZem HCl [Diltiazem 24Hr ER] 120 mg PO DAILY 01/24/19 [History Confirmed ] PMH/Surg Hx/FS Hx/Imm Hx Previously Healthy: No Endocrine/Hematology History: Reports: Hx Thyroid Disease Denies: Hx Anemia Cardiovascular History: Reports: Hx Hypertension, Hx Syncope - current visit, Other Cardiovascular Problems/Disorders - Afib GI History: Denies: Hx Jaundice Musculoskeletal History: Reports: Hx Arthritis - osteoarthritis in knees, Hx Bursitis, Hx Osteoporosis Sensory History: Reports: Hx Contacts or Glasses Denies: Hx Hearing Aid Opthamlomology History: Reports: Hx Contacts or Glasses Neurological History: Reports: Hx Headaches, Hx Migraine - Cancer History Hx Chemotherapy: No Hx Radiation Therapy: No - Surgical History Surgery Procedure, Year, and Place: R knee Hx Anesthesia Reactions: Yes - after knee surgery nausea, dizziness, fainted Infectious Disease History: No Infectious Disease History: Denies: Traveled Outside the [place] in Last 30 Days - Family History Known Family History: Positive: Hypertension, Other - prostate CA - Social History Alcohol Use: None Hx Substance Use: No Substance Use Type: Reports: None Hx Tobacco Use: No Smoking Status (MU): Never Smoked Tobacco Review of Systems Negative: Blurred Vision Positive: Other - neck pain, right wrist pain and right ankle pain Positive: Headache Positive: Other - insomnia All Other Systems Reviewed And Are Negative: Yes Physical Exam - Summary Physical Exam Summary: VITAL SIGNS: Reviewed. GENERAL: Patient is a well-developed and nourished FEMALE who is lying comfortable in the stretcher. Patient is not in any acute respiratory distress. HEAD AND FACE: No signs of trauma. No ecchymosis, hematomas or skull depressions. No sinus tenderness. EYES: PERRLA, EOMI x 2, No injected conjunctiva, no nystagmus. EARS: Hearing grossly intact. Ear canals and tympanic membranes are within normal limits. MOUTH: Oropharynx within normal limits. NECK: Supple, trachea is midline, no adenopathy, no JVD, no carotid bruit, no c- spine tenderness, neck with full ROM. CHEST: Symmetric, no tenderness at palpation LUNGS: Clear to auscultation bilaterally. No wheezing or crackles. CVS: Regular rate and rhythm, S1 and S2 present, no murmurs or gallops appreciated. ABDOMEN: Soft, non-tender. No signs of distention. No rebound no guarding, and no masses palpated. Bowel sounds are normal. EXTREMITIES: FROM in all major joints, no edema, no cyanosis or clubbing. NEURO: Alert and oriented x 3. No acute neurological deficits. Speech is normal and follows commands. SKIN: Dry and warm. GCS: 15 Triage Information Reviewed: Yes Vital Signs On Initial Exam: Initial Vitals Temp Pulse Resp BP Pulse Ox 98.1 F 74 16 109/68 99 01/24/19 13:04 01/24/19 13:04 01/24/19 13:04 01/24/19 13:04 01/24/19 13:04 Vital Signs Reviewed: Yes Diagnostics - Vital Signs Vital Signs Temp Pulse Resp BP Pulse Ox 01/24/19 13:04 98.1 F 74 16 109/68 99 - Laboratory Result Diagrams: 01/24/19 13:56 01/24/19 13:56 Lab Statement: Any lab studies that have been ordered have been reviewed, and results considered in the medical decision making process. - Radiology Right wrist x-ray Radiology Interpretation Completed By: Radiologist Summary of Radiographic Findings: NO FRACTURE OF THE WRIST IS NOTED. ED physician has reviewed this report. - CT Brain CT Interpretation Completed By: Radiologist Summary of CT Findings: No intracranial mass or hemorrhage is noted. ED physician has reviewed this report. - EKG 1354 Cardiac Rate: NL - 63 BPM EKG Rhythm: Sinus Rhythm Summary of EKG Findings: no ST elevations Re-Evaluation - Re-Evaluation First Eval Re-Evaluation Time: 16:29 Comment: Patient was given an update on plan of care. She and her are agreeable to discharge. Headache Course/Dx - Course Assessment/Plan: 78 year old F [place] [facility] [place] by with a chief complaint of intermittent episodes of sudden onset, throbbing, right- sided headaches that radiate to her right eye and nose since one month ago, worse since last night. Patient does not currently have a headache in ED. Symptoms aggravated by nothing. Symptoms alleviated by nothing. Patient reports neck pain, insomnia. Patient denies blurred vision. Patient states that headaches are the worst at night. Patient has hx migraine headaches. Patient additionally complains of right wrist pain and right ankle pain. Patient has hx HTN. Blood work without any significant abnormality except for glucose 147, urinalysis is contaminated. Patient continues to be asymptomatic. The blood pressure slightly elevated. I discussed all the findings and test results with the patient. Patient was instructed to return to the emergency room immediately if any of the symptoms return or worsens. Plan of care was discussed with the patient and she understands and agrees. All questions were answered at patient satisfaction. There were no further complaints or concerns. Lung exam before discharge: CTA B/L. Good air exchange. No wheezing or crackles heard. CVS: S1 and S2 present. No murmurs appreciated. Patient is alert and oriented x 3. Patient is hemodynamically stable. Patient will be discharged home with follow up PCP in the next 2-3 days - Diagnoses Provider Diagnoses: Headache Discharge - Sign-Out/Discharge Documenting (check all that apply): Patient Departure - Discharge Patient Received Moderate/Deep Sedation with Procedure: No - Discharge Plan Condition: Stable Disposition: HOME Patient Education Materials: General Headache (ED) Referrals: Derrick Joseph MD [Primary Care Provider] - 3 Days Additional Instructions: Follow up with your primary care provider in 3 days. RETURN TO EMERGENCY DEPARTMENT FOR NEW OR WORSENING SYMPTOMS. - Billing Disposition and Condition Condition: STABLE Disposition: Home - Attestation Statements Document Initiated by Scribe: Yes Documenting Scribe: Hattie Sarmiento Provider For Whom Doroteo is Documenting (Include Credential): Jeromy Cantu MD Scribe Attestation: Hattie Gonsales, scribed for Jeromy Cantu MD on 01/24/19 at 1854. Scribe Documentation Reviewed: Yes Provider Attestation: The documentation as recorded by the Hattie delaney accurately reflects the service I personally performed and the decisions made by , Jeromy Cantu MD Status of Scribe Document: Viewed
[2019-01-24] MEDS ORDERED: methylPREDNISolone 125 MG* 2 ML VIAL IV ONE (13:40)
[2019-01-24] MEDS ORDERED: Albuterol/Ipratropium NEB.SOL* Albuterol 2.5 MG/Ipratropium 0.5 MG 3 ML INH ONE (13:40)
[2019-01-24 14:10] LABS: ABS Eosinophils 0.1 10^3/ul (0-0.6); ABS Lymphocytes 1.6 10^3/ul (1.0-4.8); ABS Monocytes 0.5 10^3/ul (0-0.8); ABS Neutrophils 4.3 10^3/ul (1.5-7.7); Eosinophil % 0.9 %; Hematocrit 42 % (35-47); Lymphocyte % 25.3 %; Mean Corpuscular HGB Conc 33 g/dL (31-36); Mean Corpuscular Hemoglobin 29 pg (27-31); Mean Corpuscular Volume 88 fL (80-97); Mean Platelet Volume 8.6 fL (7.4-10.4); Nucleated Red Blood Cells % 0.1; Platelet Count 213 10^3/uL (150-450); Red Blood Count 4.79 10^6 /uL (3.70-4.87); Red Cell Distribution Width 13 % (10.5-15); White Blood Count 6.5 10^3/uL (3.5-10.8)
[2019-01-24 14:38] LABS: Albumin 3.9 g/dL (3.2-5.2); Albumin/Globulin Ratio 1.1 (1-3); C Reactive Protein 2.4 mg/L (<8.01); Calcium 9.6 mg/dL (8.6-10.3); EGFR African American 69.7 (>60); EGFR Non-African American 57.6 (>60); Globulin 3.6 g/dL (2-4); Potassium 3.7 mmol/L (3.5-5.0); Total Bilirubin 0.5 mg/dL (0.2-1.0); Total Protein 7.5 g/dL (6.4-8.9)
[2019-01-24 16:33] LABS: Urine Appearance Cloudy; Urine Bacteria Absent (Absent); Urine Bilirubin Negative (Negative); Urine Blood Negative (Negative); Urine Color Yellow; Urine Glucose Negative (Negative); Urine Ketones Negative (Negative); Urine Nitrite Negative (Negative); Urine Protein Negative (Negative); Urine Red Blood Cell Trace(0-2/hpf) (Absent); Urine Squamous Epithelial Cell Present (Absent); Urine Urobilinogen Negative (Negative); Urine White Blood Cell 1+(6-10/hpf) (Absent)
[2019-01-24 16:43] VITALS: BP 161/97
== END 2019-01-24 16:43 | disposition home or self-care (01) ==
LOC: ED 12:59
DX: R51 Headache (principal); M25.571 Pain in right ankle and joints of right foot; M54.2 Cervicalgia
CPT/HCPCS: 36415; 70450; 80053; 81003; 81015; 82550; 83605; 85025; 85652; 86140; 87086; 93005; 99283

== ENCOUNTER 2019-07-15 10:56 | Emergency (ER) | payer MEDICARE, OTHER ==
[2019-07-15 11:18] VITALS: BP 123/70
--- NOTE | 2019-07-15 12:33 | UC ---
Throat Pain/Nasal Julian HPI - HPI Summary HPI Summary: Patient is a 79yo female presenting with for nasal drainage, congestion , and cough x5 days. Denies ear pain. Cough is nonproductive. Denies SOB and wheezing. Denies fever and chills. Denies n/v/d and abdominal pain. Denies headache. Notes fatigue. Notes chest feeling tight at times. Denies taking anything for symptoms relief stating she "does like like to take medication." PMH significant for hypothyroidism and htn. - History of Current Complaint Chief Complaint: UCGeneralIllness Stated Complaint: COUGH Hx Obtained From: Patient Onset/Duration: Gradual Onset, Lasting Days Pain Intensity: 0 Pain Scale Used: 0-10 Numeric - Allergies/Home Medications Allergies/Adverse Reactions: Allergies Allergy/AdvReac Type Severity Reaction Status Date / Time bisacodyl AdvReac See Comment Verified 01/24/19 13:05 [From Dulcolax (bisacodyl)] PMH/Surg Hx/FS Hx/Imm Hx Previously Healthy: Yes Endocrine History: Hypothyroidism Cardiovascular History: Hypertension - Surgical History Surgical History: Yes Surgery Procedure, Year, and Place: b/l knee - Family History Known Family History: Positive: Hypertension, Other - prostate CA - Social History Occupation: Retired Lives: With Family Alcohol Use: None Substance Use Type: None Smoking Status (MU): Never Smoked Tobacco - Immunization History Most Recent Influenza Vaccination: 2014 Most Recent Tetanus Shot: unknown Most Recent Pneumonia Vaccination: 2013 Review of Systems All Other Systems Reviewed And Are Negative: Yes Constitutional: Positive: Fatigue. Negative: Fever, Chills ENT: Positive: Nasal Discharge, Sinus Congestion. Negative: Sore Throat, Ear Ache, Sinus Pain/Tenderness Respiratory: Positive: Cough - dry. Negative: Shortness Of Breath Cardiovascular: Positive: Negative Gastrointestinal: Positive: Negative Musculoskeletal: Positive: Negative Neurological: Positive: Negative Physical Exam Triage Information Reviewed: Yes Appearance: Well-Appearing, No Pain Distress, Well-Nourished Vital Signs: Initial Vital Signs Temp 98.0 F 07/15/19 11:14 Pulse 72 07/15/19 11:14 Resp 16 07/15/19 11:14 BP 123/70 07/15/19 11:14 Pulse Ox 100 07/15/19 11:14 Vital Signs Reviewed: Yes Eyes: Positive: Conjunctiva Clear ENT: Positive: Hearing grossly normal, Pharynx normal, Nasal congestion, Nasal drainage, TMs normal, Uvula midline. Negative: Tonsillar swelling, Tonsillar exudate, Sinus tenderness Neck exam: Normal Neck: Positive: Supple, Nontender, No Lymphadenopathy Respiratory Exam: Normal Respiratory: Positive: Lungs clear, Normal breath sounds, No respiratory distress. Negative: Crackles, Rhonchi, Stridor, Wheezing Cardiovascular Exam: Normal Cardiovascular: Positive: RRR Neurological: Positive: Alert Psychological: Positive: Age Appropriate Behavior Throat Pain/Nasal Course/Dx - Course Course Of Treatment: Patient VS and PE findings normal. Well-appearing. Discussed viral illness and instructed to continue with symptomatic treatment of symptoms including use of nasal spray. Instructed to follow up with pcp for persistent symptoms or to go to ED with new or worsening symptoms. Patient voiced understanding and agreed with treatment plan. - Differential Dx/Diagnosis Provider Diagnosis: Upper respiratory infection, Acute bronchitis Discharge ED - Sign-Out/Discharge Documenting (check all that apply): Patient Departure All imaging exams completed and their final reports reviewed: No Studies - Discharge Plan Condition: Stable Disposition: HOME Prescriptions: Fluticasone NASAL SPRAY 50MCG* [Flonase NASAL SPRAY 50MCG*] 2 spray BOTH NARES DAILY PRN #1 [id number] PRN Reason: Congestion Patient Education Materials: Upper Respiratory Infection (ED), Acute Bronchitis (ED) Referrals: Derrick Joseph MD [Primary Care Provider] - If Needed Additional Instructions: As discussed, your symptoms are likely caused by a virus. Viruses do not respond to antibiotic treatment and should resolve on their own with time. You may use the Flonase nasal spray as prescribed for symptomatic relief. You may also continues to use a humidifier at night and use an over the counter cough syrup to help relieve coughing. Get plenty of rest and increase your fluid intake. Follow up with your primary care doctor if your symptoms worsen or do not resolve within 7 days. Go to the Emergency Room if you experience new or worsening symptoms. - Billing Disposition and Condition Condition: STABLE Disposition: Home
== END 2019-07-15 13:11 | disposition home or self-care (01) ==
LOC: UCEAST 10:56
DX: J06.9 Acute upper respiratory infection, unspecified (principal); J20.9 Acute bronchitis, unspecified; I10 Essential (primary) hypertension; Z88.8 Allergy status to other drugs, medicaments and biological substances
CPT/HCPCS: 99212; G0463